=== PATIENT | male | born 1995 | race Caucasian/White ===

== ENCOUNTER 2019-12-22 00:32 | Emergency (ER) | payer OTHER ==
--- OUTSIDE RECORDS SUMMARY | 2019-12-22 00:53 | XMS ---
:1995 [facility] Organization [facility] Support Name Relationship Address Phone [facility] Unavailable [address] [place] [address] BALDA, LEAH MOTHER [address] [place] [address] NA, HARMEET GP NA UNEMPLOYED Unavailable [address] [place] [address] ROCAFUERTE, [place] [address] [place] [address] Care Team Providers Name Role Phone Jose Francisco, Jd Unavailable Unavailable Jose Francisco, Jd Unavailable Unavailable Jose Francisco, Jd Unavailable Unavailable Jose Francisco, Jd Unavailable Unavailable Jose Francisco, Jd Unavailable Unavailable Jose Francisco, Jd Unavailable Unavailable Jose Francisco, Jd Unavailable Unavailable Phan Olivarezlorenza Vo Unavailable [phone] Menla, Lio Unavailable Unavailable Menla, Lio Unavailable Unavailable Menla, Lio Unavailable Unavailable Menla, Lio Unavailable Unavailable Menla, Lio Unavailable Unavailable Menla, Lio Unavailable Unavailable Sneed, Saloman Unavailable [phone] Sneed, Saloman Unavailable [phone] KRISTIE, AMMIR Unavailable Unavailable Kristie, Ammir Unavailable [phone] Kristie, Ammir Unavailable [phone] Kristie, Ammir Unavailable [phone] Kristie, Ammir Unavailable [phone] Kristie, Ammir Unavailable [phone] Kristie, Ammir Unavailable [phone] Kristie, Ammir Unavailable [phone] Kristie, Ammir Unavailable [phone] Kristie, Ammir Unavailable [phone] Kristie, Ammir Unavailable [phone] Kristie, Ammir Unavailable [phone] Kristie, Ammir Unavailable [phone] Kristie, Ammir Unavailable [phone] Kristie, Ammir Unavailable [phone] Kristie, Ammir Unavailable [phone] Kristie, Ammir Unavailable [phone] LIO GARRIDO Unavailable Unavailable MONTGOMERY, JACKI Unavailable Unavailable Montgomery, Jacki Unavailable Unavailable Montgomery, Jacki Unavailable Unavailable Montgomery, Jacki Unavailable Unavailable Montgomery, Jacki Unavailable Unavailable Re-disclosure Warning The records that you are about to access may contain information from federally- assisted alcohol or drug abuse programs. If such information is present, then the following federally mandated warning applies: This information has been disclosed to you from records protected by federal confidentiality rules (42 CFR part 2). The federal rules prohibit you from making any further disclosure of this information unless further disclosure is expressly permitted by the written consent of the person to whom it pertains or as otherwise permitted by 42 CFR part 2. A general authorization for the release of medical or other information is NOT sufficient for this purpose. The Federal rules restrict any use of the information to criminally investigate or prosecute any alcohol or drug abuse patient.The records that you are about to access may contain highly sensitive health information, the redisclosure of which is protected by Article 27-F of the [facility] Public Health law. If you continue you may haveaccess to information: Regarding HIV / AIDS; Provided by facilities licensed or operated by the [facility] Office of Mental Health; or Provided by the [facility] Office for People With Developmental Disabilities. If such information is present, then the following [facility] mandated warning applies: This information has been disclosed to you from confidential records which are protected by state law. State law prohibits you from making any further disclosure of this information without the specific written consent of the person to whom it pertains, or as otherwise permitted by law. Any unauthorized further disclosure in violation of state law may result in a fine or intermediate sentence or both. A general authorization for the release of medical or other information is NOT sufficient authorization for further disclosure. Allergies and Adverse Reactions Type Description Substance Reaction Status Data Source(s ) Propensity to Propensity to Propensity to NEXTG EN ([facility] adverse reactions adverse reactions adverse reactions [facility] (disorder) (disorder) (disorder) Center) Family History Family Member Family Member Family Member Date of Description Data Source(s) Name Gender Status Status Unknown Male Diagnosis 05/09/2014 NEXTGEN ([facility] 12:00:00 AM [facility]) Unknown Male Diagnosis 05/09/2014 NEXTGEN ([facility] 12:00:00 AM [facility]) Encounters Encounter Providers Location Date Indications Data Source(s ) Attender: Jacki [facility] 10[facility]2019 [facility] [place]) 10/27/2019 04:37:00 PM EDT Outpatient Attender: JACKI Hillman 10/24/2019 [facility] MARYAAdmitter: 04:06:00 PM Medical C enter JACKI EDT MARYAReferrer: JACKI MONTGOMERY OutpatientOFFICE/O Attender: Lio [address] [place] [address] 10/24/2019 NE XTGEN ([facility] Men 04:06:00 PM [facility] EDT - [place]) 10/24/2019 04:06:00 PM EDT Outpatient 10/24/2019 [facility] 04:03:00 PM Medical Cente r EDT Outpatient 10/24/2019 [facility] 12:00:00 AM Medical Cente r EDT Outpatient 10/17/2019 [facility] 06:04:00 PM Medical Cente r EDT Outpatient 10/17/2019 [facility] 12:00:00 AM Medical Cente r EDT Outpatient 08/29/2019 [facility] 03:40:00 PM Medical Cente r EDT Outpatient 08/29/2019 [facility] 12:00:00 AM Medical Cente r EDT Outpatient 08/28/2019 [facility] 10:07:00 AM Medical Cente r EDT Outpatient 08/28/2019 [facility] 12:00:00 AM Medical Cente r EDT Outpatient Attender: LIO Hillman 07/31/2019 [facility] MENLA 03:12:00 PM Medical Cente r ELVIRAEAdmitter: EDT LIO Richardsonferrer: LIO VACA OutpatientOFFICE/O Attender: Lio [facility] 07/31/2019 NE XTGEN ([facility], Menla 03:12:00 PM [facility] EDT - Center) 07/31/2019 03:12:00 PM EDT Outpatient 07/31/2019 [facility] 12:17:00 PM Medical Cente r EDT Outpatient 07/31/2019 [facility] 12:00:00 AM Medical Cente r EDT Attender: Brayan Lopez [facility] 07/29/2019 NEXTGEN ( [facility] 03:54:[address] [facility] EDT - Center) 07/29/2019 03:54:00 PM EDT 07/25/2019 [facility] 11:09:00 AM Medical Cente r EDT Patient admitted. Outpatient Attender: LIO Hillman 07/24/2019 Pawan Dudleyitter: LIO 11:15:00 AM EDT edical Center DEEJAY Jettr: LIO VACA OutpatientOFFICE/O Attender: Lio [facility] 07/24/2019 [facility] ([facility] UTPATIENT VISIT, 11:15:00 AM EDT - J osep EST 07/24/2019 Medical 11:15:00 AM EDT Center) Outpatient 07/24/2019 [facility] 10:53:00 AM EDT Medical C enter Outpatient 07/24/2019 [facility] 12:00:00 AM EDT Medical C enter Outpatient 07/21/2019 [facility] 09:55:00 AM EDT Medical C enter Outpatient 07/21/2019 [facility] 12:00:00 AM EDT Medical C enter Attender: Brayan Vo [address] [place] [address] 03/06/2019 NEXT GEN ([facility] 06:23:00 PM EST [facility] 03/06/2019 Medical 06:23:00 PM EST Center) Attender: [facility] 02/17/2019 GENOVEVA MONTANEZ ([facility] 12:48:00 PM EST [facility] 02/17/2019 Medical 12:48:00 PM EST Center) Outpatient Attender: LIO Hillman 02/13/2019 Pawan Dudleyitter: LIO 04:06:00 PM EST edical Center DEEJAY Be: LIO VACA OutpatientOFFICE/O Attender: Jacki [facility] 02/13/2019 NEXTGEN ([facility], 04:06:00 PM EST - J osephs EST 02/13/2019 Medical 04:06:00 PM EST Center) Outpatient 02/13/2019 [facility] 04:04:00 PM EST Medical C enter Outpatient 02/13/2019 [facility] 12:00:00 AM EST Medical C enter Attender: Jacki Montgomery [address] [place] [address] 10/31/2018 NEX TGEN ([facility] 04:59:00 PM EDT [facility] 10/31/2018 Medical 04:59:00 PM EDT Center) Outpatient 10/25/2018 [facility] 01:38:00 PM EDT Medical C enter Outpatient 10/25/2018 [facility] 12:00:00 AM EDT Medical C enter Outpatient Attender: XAVI Hillman 10/24/2018 [facility] RABADIAdmitter: AMMIR 03:55:00 PM EDT Medical Center RABADIReferrer: XAVI FLOWERS OutpatientOFFICE/O Attender: Lio Chang [address] [place] [address] 10/24/2018 NEXTGEN ([facility] VISIT, 03:55:00 PM EDT - J osep EST 10/24/2018 Medical 03:55:00 PM EDT Center) Outpatient 10/24/2018 [facility] 03:51:00 PM EDT Medical C enter Outpatient 10/24/2018 [facility] 12:00:00 AM EDT Medical C enter Outpatient 07/30/2018 [facility] 02:05:00 PM EDT Medical C enter Outpatient 07/30/2018 [facility] 12:00:00 AM EDT Medical C enter Attender: Jacki Caijia [address] [place] [address] 08/09/2017 NEX TGEN ([facility] 05:08:00 PM EDT [facility] 08/09/2017 Medical 05:08:00 PM EDT Center) Attender: Jacki Montgomery [address] [place] [address] 07/26/2017 NEX TGEN ([facility] 03:35:00 PM EDT [facility] 07/26/2017 Medical 03:35:00 PM EDT Center) Attender: Lio Chang [address] [place] [address] 04/23/2017 NEXT GEN ([facility] 02:28:00 PM EST [facility] 04/23/2017 Medical 02:28:00 PM EST Center) Attender: Brayan Vo [facility] 11/13/2016 [facility]ir 04:30:00 PM EDT [facility] 11/13/2016 Medical 04:30:00 PM EDT Center[facility] 09:06:00 AM EDT - [facility] 08/25/2016 Medical 09:06:00 AM EDT Center) Attender: Joseoman 08/04/2016 NEXTGEN ([facility] 09:10:00 AM EDT - [facility] 08/04/2016 Medical 09:10:00 AM EDT Center) Attender: Lio Chang [address] [place] [address] 04/07/2016 NEXT GEN ([facility] 04:26:00 PM EST - [facility] 04/07/2016 Medical 04:26:00 PM EST Center) Attender: [facility] 07/26/2015 NEXTGE N ([facility] 03:12:00 PM EDT - [facility] 07/26/2015 Medical 03:12:00 PM EDT Center) [facility] N [facility] ([facility] 02:11:00 PM EST - [facility] 05/09/2014 Medical 02:11:00 PM EST Center) Immunizations Vaccine Date Status Description Data Source(s) New in 2011. IIV4 12/19/2018 completed Influenza, Injectable, NEXTGEN ([facility] 12:00:00 AM EDT Quadrivalent [facility]) Source: Other Provider Medications Medication Brand Start Product Dose Route Administrative Pharmacy [facility] Indications Reaction Description Data Name Date Form Instructions Instructions Source(s) Fluoxetine fluoxe .00 ORAL active take 1 N EXTGEN 20 MG Oral sarah 2020 {caps capsule by (S aint Capsule 20 mg 12:00: ule} oral route Ravinder ephs fluoxetine capsul 00 AM every day i n Medical 20 mg e EDT the morning Center) capsule Aspirin 81 Aspir- ORAL active take 1 N EXTGEN MG Delayed 81 mg 2020 {tbl} tablet by (S aint Release tablet 12:00: oral route Usha sephs Oral Tablet ,delay 00 AM every day Medical Aspir-81 mg ed EDT Center) tablet,chana releas yed release e benzonatate benzon ORAL active take 1 NEXTGEN 200 MG Oral atate 2019 {caps capsule by (Saint Capsule 200 mg 12:00: ule} oral route 3 Sergei benzonatate capsul 00 AM times ever y Medical 200 mg e EDT day as Center) capsule needed for cough Ibuprofen ibupro ORAL complet take 1 N EXTGEN 600 MG Oral fen 2018 {tbl} ed tablet by (S aint Tablet 600 mg 12:00: oral route 3 J osephs ibuprofen tablet 00 AM times every Medical 600 mg EDT day with Center) tablet food Ibuprofen ibupro ORAL complet take 1 N EXTGEN 400 MG Oral fen 2018 {tbl} ed tablet by (S aint Tablet 400 mg 12:00: oral route Ravinder ephs ibuprofen tablet 00 AM every 4 - 6 Medical 400 mg EDT hours as Center) tablet needed cetirizine Zyrtec ORAL active take 1 N EXTGEN hydrochlori 10 mg 2017 {tbl} tablet by ( [facility] de 10 MG tablet 12:00: oral route J osephs Oral Tablet 00 AM every day Me dical Zyrtec 10 EDT Center) mg tablet benzonatate benzon ORAL complet take 1 NEXTGEN 150 MG Oral atate 2018 {caps ed capsule by ([facility] Capsule 150 mg 12:00: ule} oral route 3 Sergei benzonatate capsul 00 AM times ever y Medical 150 mg e EDT day as Center) capsule needed for cough Hydrocortis hydroc 11/13/ active apply b y NEXTGEN one 25 ortiso 2017 topical (Saint MG/ML ne 2.5 12:00: route every Usha sephs Topical % 00 AM day to the Medic al Cream topica EDT affected Center) hydrocortis l area(s) one 2.5 % cream topical cream Sumatriptan sumatr ORAL active take 1 NEXTGEN 50 MG Oral iptan 2017 {tbl} tablet by (S aint Tablet 50 mg 12:00: oral route Efrain phs sumatriptan tablet 00 AM after onse t Medical 50 mg EDT of migraine; Center ) tablet may repeat after 2 hours if headache returns,not to exceed 200mg in 24hrs Prednisone predni 11/13/ complet take 2 NEXTGEN 20 MG Oral sone 2017 ed tablets x ([place]on nt Tablet 20 mg 12:00: 3day then Dale hs prednisone tablet 00 AM take 1 Medi camron 20 mg EDT tablet x 2 Center) tablet days Insurance Providers Payer name Policy type Policy ID Covered Covered libertarian's Policy P gayle / Coverage libertarian ID relationship to Villar Inf ormation type villar CELESTE [id number] SP [id number] 100 HEALTH NON CAP CELESTE [place] [id number] 01 [id number] 100 CARE [place] CELESTE [place] [id number] 01 [id number] 100 CARE [place] W [id number] Problems, Conditions, and Diagnoses Code Display Name Description Problem Type Effective Data Dates Source(s) [id number] Migraine Migraine Problem 04/07/2016 NEXTGEN 12:00:00 AM ([facility]) Z71.89 Other specified OTHER SPECIFIED Diagnosis 10/24/2019 Pawan t counseling COUNSELING 04:06:00 PM [facility] Z68.22 Body mass index BODY MASS INDEX Diagnosis 10/24/2019 Pawan t (BMI) 22.0-22.9, (BMI) 22.0-22.9, 04:06:00 PM [facility] adult ADULT [facility] Z01.84 Encounter for ENCOUNTER FOR Diagnosis 10/24/2019 antibody response ANTIBODY RESPONSE 04:06:00 PM [facility] examination EXAMINATION [facility] R41.840 Attention and ATTENTION AND Diagnosis 10/24/2019 concentration CONCENTRATION 04:06:00 PM [facility] deficit DEFICIT [facility] Z11.1 Encounter for ENCOUNTER FOR Diagnosis 10/24/2019 screening for SCREENING FOR 04:06:00 PM [facility] respiratory RESPIRATORY [facility] tuberculosis TUBERCULOSIS Center Z71.3 Dietary counseling DIETARY COUNSELING Diagnosis 0 and surveillance AND SURVEILLANCE 03:12:00 PM [facility] Z68.21 Body mass index BODY MASS INDEX Diagnosis 07/31/2019 Pawan t (BMI) 21.0-21.9, (BMI) 21.0-21.9, 03:12:00 PM [facility] adult [facility]ULT [facility] R07.9 Chest pain, CHEST PAIN, Diagnosis 07/31/2019 unspecified UNSPECIFIED 03:12:00 PM [facility] Z11.4 Encounter for ENCOUNTER FOR Diagnosis 02/13/2019 screening for human SCREENING FOR HUMAN 04:06:0 0 PM [facility] immunodeficiency IMMUNODEFICIENCY [facility] dical virus [HIV] VIRUS Center Z71.82 Exercise counseling EXERCISE COUNSELING Diagnosis 019 [facility] 04:06:00 PM [facility] Z68.20 Body mass index BODY MASS INDEX Diagnosis 02/13/2019 Pawan t (BMI) 20.0-20.9, (BMI) 20.0-20.9, 04:06:00 PM Kasia osephs adult ADULT [facility] J06.9 Acute upper ACUTE UPPER Diagnosis 10/24/2018 [facility] respiratory RESPIRATORY 03:55:00 PM [facility] infection, INFECTION, EDT Medical unspecified UNSPECIFIED Center Z00.00 Encounter for ENCNTR FOR GENERAL Diagnosis 10/24/2018 [facility] adult ADULT MEDICAL EXAM 03:55:00 PM Usha [facility] medical examination W/O ABNORMAL EDT Med ical without abnormal FINDINGS Center findings Surgeries/Procedures Procedure Description Date Indications Data Source(s) OFFICE/OUTPATIENT 10/24/2019 [facility] (S hattie [facility] VISIT, EST 12:00:00 AM EDT - Medical Ce nter) 10/24/2019 12:00:00 AM EDT OFFICE/[facility]PATIENT [facility] VISIT, EST 12:00:00 AM EDT - Medical Ce nter) 07/31/2019 12:00:00 AM EDT OFFICE/OUTPATIENT [facility] VISIT, EST 12:00:00 AM EDT - Medical Ce nter) 07/24/2019 12:00:00 AM EDT OFFICE/OUTPATIENT 02[facility]/2019 [facility] VISIT, EST 12:00:00 AM EST - Medical Ce nter) 02/13/2019 12:00:00 AM EST OFFICE/OUTPATIENT 10[facility]/2018 [facility] VISIT, EST 12:00:00 AM EDT - Medical Ce nter) 10/24/2018 12:00:00 AM EDT Results ID Date Data Source Liver 07/24/2019 12:03:00 PM EDT [facility] Profile.[id number] Name Value Range Interpretation Description Data Sup porting Code Source(s) Document(s ) Alkaline 38-126 <content [facility] phosphatase styleCode="Bold"> Sergei [Enzymatic Alkaline Medical activity/volume] Phosphatase (ALP) Cente r in Serum or Plasma </content>90 IU/L<content styleCode="Italic s"> (38-126 IU/L)</content> Alanine 7-50 <content [facility] aminotransferase styleCode="Bold"> Dale hs [Enzymatic Alanine Medical activity/volume] Aminotransferase Center in Serum or Plasma (ALT) </content>11 IU/L<content styleCode="Italic s"> (7-50 IU/L)</content> Aspartate 17-59 <content [facility] aminotransferase styleCode="Bold"> Dale hs [Enzymatic Aspartate Medical activity/volume] Aminotransferase Center in Serum or Plasma (AST) </content>22 IU/L<content styleCode="Italic s"> (17-59 IU/L)</content> Bilirubin.total 0.2-1.3 <content [facility] [Mass/volume] in styleCode="Bold"> Dale hs Serum or Plasma Bilirubin Total Medical </content>0.3 Center MG/DL<content styleCode="Italic s"> (0.2-1.3 MG/DL)</content> Albumin 3.5-5.0 <content [facility] [Mass/volume] in styleCode="Bold"> Dale hs Serum or Plasma Albumin Medical </content>4.5 Center G/DL<content styleCode="Italic s"> (3.5-5.0 G/DL)</content> ID Date Data Source [id number] 07/24/2019 12:03:[address] [facility] Name Value Range Interpretation Description Data Sup porting Code Source(s) Document(s ) Thyrotropin 0.465-4. <content Saint [Units/volume] 68 styleCode="Ja Sergei in Serum or d">Thyroid Medical Plasma by Stimulating Center Detection Hormone limit <= 0.05 </content>1.42 mIU/L MIU/L<content styleCode="Ashlee lics"> (0.465-4.68 MIU/L)</conten t> ID Date Data Source HematologySpeci.[id number] 07/24/2019 12:03:00 PM EDT [facility] nt [facility] 0-0400 Name Value Range Interpretation Description Data Sup porting Code Source(s) Document(s ) Erythrocyte < 15 <content [facility] sedimentation styleCode="Bold" Sergei rate by >Erythrocyte Medical [facility] method Rate (ESR) </content>2 MM/hr<content styleCode="Itali cs"> (< 15 MM/hr)</content> ID Date Data Source HematologyRou.[id number] 07/24/2019 12:03:00 PM EDT [facility] 0400 Name Value Range Interpretation Description Data Sup porting Code Source(s) Document(s ) Leukocytes 4.4-11.0 <content Saint [#/volume] in styleCode="Bold Sergei Blood by ">White Blood Medical Automated count Cell Count Center </content>7.46 KCUMM<content styleCode="Ital ics"> (4.4-11.0 KCUMM)</content > Erythrocytes 4.4-5.9 <content Saint [#/volume] in styleCode="Bold Sergei Blood by ">Red Blood Medical Automated count Cell Count Center </content>5.14 MCUMM<content styleCode="Ital ics"> (4.4-5.9 MCUMM)</content > Erythrocyte mean 26.0-34. <content [facility] corpuscular 0 styleCode="Bold Sergei hemoglobin ">Mean Medical [Entitic mass] Corposcular Center by Automated Hemoglobin count </content>30.5 PG<content styleCode="Ital ics"> (26.0-34.0 PG)</content> Hemoglobin 13.5-17. <content [facility] [Mass/volume] in 5 styleCode="Bold Sergei Blood ">Hemoglobin Medical </content>15.7 Center G/DL<content styleCode="Ital ics"> (13.5-17.5 G/DL)</content> Erythrocyte mean 80.0-100 <content [facility] corpuscular .0 styleCode="Bold Sergei volume [Entitic ">Mean Medical volume] by Corpuscular Center Automated count Volume </content>88.5 FL<content styleCode="Ital ics"> (80.0-100.0 FL)</content> Hematocrit 41.0-53. <content Saint [Volume 0 styleCode="Bold Sergei Fraction] of ">Hematocrit Medical Blood by </content>45.5 Center Automated count %<content styleCode="Ital ics"> (41.0-53.0 %)</content> Erythrocyte mean 32.0-37. <content [facility] corpuscular 0 styleCode="Bold Sergei hemoglobin ">Mean Corpus. Medical concentration Hgb Center [Mass/volume] by Concentration Automated count (MCHC) </content>34.5 G/DL<content styleCode="Ital ics"> (32.0-37.0 G/DL)</content> Platelets 130-400 <content Saint [#/volume] in styleCode="Bold Sergei Blood by ">Platelet Medical Automated count Count Center </content>285 KCUMM<content styleCode="Ital ics"> (130-400 KCUMM)</content > Erythrocyte 11.5-14. <content Saint distribution 5 styleCode="Bold Sergei width [Ratio] by ">Red Cell Medical Automated count Distribution Center Width </content>11.9 %<content styleCode="Ital ics"> (11.5-14.5 %)</content> UNK 0.0 <content Saint styleCode="Bold Sergei ">Nucleated Red Medical Blood Cell Center Count </content>0.00 KCUMM<content styleCode="Ital ics"> (0.0 KCUMM)</content > Platelet mean 8.0-11.0 <content Saint volume [Entitic styleCode="Bold Sergei volume] in Blood ">Mean Platelet Medical by Automated Volume Center count </content>9.5 FL<content styleCode="Ital ics"> (8.0-11.0 FL)</content> UNK 0 <content Saint styleCode="Bold Sergei ">Nucleated Red Medical Blood Cell Center </content>0.0 /100<content styleCode="Ital ics"> (0 /100)</content> ID Date Data Source GFR(Creatinine).[id number] 07/24/2019 12:03:00 PM EDT [facility] Center 0-0400 Name Value Range Interpretation Code Description Data Amparo rce(s) Supporting Document(s ) UNK > 60 <content [facility] styleCode="Bold"> Medical Cent er EGFR </content>111 GFR<content styleCode="Italic s"> (> 60 GFR)</content> ID Date Data Source CHMROUTINECCDA.[id number] 07/24/2019 12:03:00 PM EDT [facility] -0400 Name Value Range Interpretation Description Data Sup porting Code Source(s) Document(s ) Protein 6.3-8.2 <content [facility] [Mass/volum styleCode="Bold Medical e] in Serum ">Total Protein Center or Plasma </content>7.2 G/DL<content styleCode="Ital ics"> (6.3-8.2 G/DL)</content> UNK >= 1.0 <content [facility] styleCode="Bold Medical ">AG Ratio Center </content>1.7 <content styleCode="Ital ics"> (>= 1.0 )</content> UNK 2.3-3.5 <content [facility] styleCode="Bold Medical ">Globulin Center </content>2.7 G/DL<content styleCode="Ital ics"> (2.3-3.5 G/DL)</content> ID Date Data Source [facility].[id number] 07/24/2019 12:03:00 PM EDT [facility] Name Value Range Interpretation Description Data Sup porting Code Source(s) Document(s ) Sodium 137-145 <content Saint [Moles/volume] in styleCode="Bold"> [facility] Serum or Plasma Sodium Medical </content>138 Center MEQ/L<content styleCode="Italic s"> (137-145 MEQ/L)</content> Potassium 3.5-5.3 <content [facility] [Moles/volume] in styleCode="Bold"> E[facility] Serum or Plasma Potassium Medical </content>4.2 Center MEQ/L<content styleCode="Italic s"> (3.5-5.3 MEQ/L)</content> Chloride 98-107 <content Saint [Moles/volume] in styleCode="Bold"> Efrain phs Serum or Plasma Chloride Medical </content>99 Center MEQ/L<content styleCode="Italic s"> (98-107 MEQ/L)</content> Carbon dioxide, 22-30 Above high <content Saint total normal styleCode="Bold"> Sergei [Moles/volume] in Carbon Dioxide Medical Serum or Plasma </content>32 Center MEQ/L H<content styleCode="Italic s"> (22-30 MEQ/L)</content> Creatinine 0.5-1.3 <content Saint [Mass/volume] in styleCode="Bold"> Dale hs Serum or Plasma Creatinine Medical </content>0.9 Center MG/DL<content styleCode="Italic s"> (0.5-1.3 MG/DL)</content> UNK 9-20 <content Saint styleCode="Bold"> Sergei BUN </content>9 Medical MG/DL<content Center styleCode="Italic s"> (9-20 MG/DL)</content> Glucose 74-106 <content Saint [Mass/volume] in styleCode="Bold"> Dale hs Serum or Plasma Glucose Medical </content>93 Center MG/DL<content styleCode="Italic s"> (74-106 MG/DL)</content> Calcium 8.4-10. <content [facility] [Mass/volume] in 2 styleCode="Bold"> Dale hs Serum or Plasma Calcium Medical </content>9.7 Center MG/DL<content styleCode="Italic s"> (8.4-10.2 MG/DL)</content> UNK > 60 <content Saint styleCode="Bold"> Sergei EGFR Medical </content>111 Center GFR<content styleCode="Italic s"> (> 60 GFR)</content> Alkaline 38-126 <content Saint phosphatase styleCode="Bold"> Sergei [Enzymatic Alkaline Medical activity/volume] Phosphatase (ALP) Cente r in Serum or Plasma </content>90 IU/L<content styleCode="Italic s"> (38-126 IU/L)</content> Alanine 7-50 <content Saint aminotransferase styleCode="Bold"> Dale hs [Enzymatic Alanine Medical activity/volume] Aminotransferase Center in Serum or Plasma (ALT) </content>11 IU/L<content styleCode="Italic s"> (7-50 IU/L)</content> Aspartate 17-59 <content Saint aminotransferase styleCode="Bold"> Dale hs [Enzymatic Aspartate Medical activity/volume] Aminotransferase Center in Serum or Plasma (AST) </content>22 IU/L<content styleCode="Italic s"> (17-59 IU/L)</content> Bilirubin.total 0.2-1.3 <content Saint [Mass/volume] in styleCode="Bold"> Dale hs Serum or Plasma Bilirubin Total Medical </content>0.3 Center MG/DL<content styleCode="Italic s"> (0.2-1.3 MG/DL)</content> Albumin 3.5-5.0 <content Saint [Mass/volume] in styleCode="Bold"> Dale hs Serum or Plasma Albumin Medical </content>4.5 Center G/DL<content styleCode="Italic s"> (3.5-5.0 G/DL)</content> ID Date Data Source [id number] 07/22/2019 12:00:00 AM EDT [facility] Name Value Range Interpretation Code Description Data Amparo rce(s) Supporting Document(s ) 2019-nCoV [facility] RNA XXX EMILY+probe- Imp This lab was ordered by [facility] and reported by [employer]. ID Date Data Source Microbiology.[id number] 10/24/2018 05:15:00 PM EDT [facility] 400 Name Value Range Interpretation Description Data Sup porting Code Source(s) Document(s ) UNK <item><content Saint styleCode="[facility] d">Culture Medical Report Center </content><br/ ><table><tbody ><tr><td>Speci men Number:</td><t d>[id number]</t d></tr><tr><td >Sample Collection Date/Time: </td><td>2018 5:15 PM</td></tr><t r><td>Specimen Source:</td><t d>THROAT</td>< /tr><tr><td>Th roat-Nose Culture:</td>< td>Collection Plate Date: 10/24/2018 19:14 </td></tr><tr> <td>Culture Status:</td><t d>Final </td></tr><tr> <td>Culture Report:</td><t d>NEGATIVE FOR BETA HEMOLYTIC STREPTOCOCCI </td></tr></tb lv></table></ item> Streptococcus NEGATIVE <item><content Saint pyogenes Ag styleCode="Ja Mai [Presence] in d">Rapid Strep Medical Unspecified A Center specimen by </content><br/ Immunoassay ><table><tbody ><tr><td>Speci men Number:</td><t d>[id number]</t d></tr><tr><td >Sample Collection Date/Time: </td><td>2018 5:15 PM</td></tr><t r><td>Specimen Source:</td><t d>THROAT</td>< /tr><tr><td>Ra pid Strep A:</td><td>NEG ATIVE </td></tr></tb lv></table></ item> UNK <item><content Saint styleCode="Ja Mai d">Culture Medical Status Center </content><br/ ><table><tbody ><tr><td>Speci men Number:</td><t d>[id number]</t d></tr><tr><td >Sample Collection Date/Time: </td><td>2018 5:15 PM</td></tr><t r><td>Specimen Source:</td><t d>THROAT</td>< /tr><tr><td>Cu lture Report:</td><t d>NEGATIVE FOR BETA HEMOLYTIC STREPTOCOCCI </td></tr><tr> <td>Throat-Nos e Culture:</td>< td>Collection Plate Date: 10/24/2018 19:14 </td></tr><tr> <td>Culture Status:</td><t d>Final </td></tr></tb lv></table></ item> ID Date Data Source Liver 10/24/2018 05:15:00 PM EDT [facility] Profile.[id number] Name Value Range Interpretation Description Data Sup porting Code Source(s) Document(s ) Alanine 7-50 <content Saint aminotransferase styleCode="Bold"> Dale hs [Enzymatic Alanine Medical activity/volume] Aminotransferase Center in Serum or Plasma (ALT) </content>14 IU/L<content styleCode="Italic s"> (7-50 IU/L)</content> Aspartate 17-59 <content [facility] aminotransferase styleCode="Bold"> Dale hs [Enzymatic Aspartate Medical activity/volume] Aminotransferase Center in Serum or Plasma (AST) </content>18 IU/L<content styleCode="Italic s"> (17-59 IU/L)</content> Alkaline 38-126 <content Saint phosphatase styleCode="Bold"> Sergei [Enzymatic Alkaline Medical activity/volume] Phosphatase (ALP) Cente r in Serum or Plasma </content>99 IU/L<content styleCode="Italic s"> (38-126 IU/L)</content> Albumin 3.5-5.0 <content Saint [Mass/volume] in styleCode="Bold"> Dale hs Serum or Plasma Albumin Medical </content>4.1 Center G/DL<content styleCode="Italic s"> (3.5-5.0 G/DL)</content> Bilirubin.total 0.2-1.3 <content Saint [Mass/volume] in styleCode="Bold"> Dale hs Serum or Plasma Bilirubin Total Medical </content>0.5 Center MG/DL<content styleCode="Italic s"> (0.2-1.3 MG/DL)</content> ID Date Data Source LIPID.[id number] 10/24/2018 05:15:00 PM EDT [facility] Name Value Range Interpretation Description Data Sup porting Code Source(s) Document(s ) Cholesterol -<200 <content Saint [Mass/volume] in styleCode="Ja Sergei Serum or Plasma d">Cholesterol Medical </content>155 Center MG/DL<content styleCode="Ashlee lics"> (-<200 MG/DL)</conten t> UNK > 60 Below low normal <content Saint styleCode="Ja Sergei d">HDL- Medical Cholesterol Center </content>54 MG/DL L<content styleCode="Ashlee lics"> (> 60 MG/DL)</conten t> Triglyceride < 150 <content Saint [Mass/volume] in styleCode="Ja Sergei Serum or Plasma d">Triglycerid [facility] es Center </content>60 MG/DL<content styleCode="Ashlee lics"> (< 150 MG/DL)</conten t> UNK < 100 <content Saint styleCode="Ja Sergei d">LDL-Cholest [facility] </content>89 MG/DL<content styleCode="Ashlee lics"> (< 100 MG/DL)</conten t> ID Date Data Source HematologySpeci.[id number] 10/24/2018 05:15:00 PM EDT [facility] 0-0400 Name Value Range Interpretation Description Data Sup porting Code Source(s) Document(s ) Erythrocyte < 15 <content Saint sedimentation styleCode="Bold" Sergei rate by >Erythrocyte [facility] method Rate (ESR) </content>1 MM/hr<content styleCode="Itali cs"> (< 15 MM/hr)</content> ID Date Data Source HematologyRou.[id number] 10/24/2018 05:15:00 PM EDT [facility] 0400 Name Value Range Interpretation Description Data Sup porting Code Source(s) Document(s ) Leukocytes 4.4-11.0 <content Saint [#/volume] in styleCode="Bold Sergei Blood by ">White Blood Medical Automated count Cell Count Center </content>8.19 KCUMM<content styleCode="Ital ics"> (4.4-11.0 KCUMM)</content > Erythrocytes 4.4-5.9 <content Saint [#/volume] in styleCode="Bold Sergei Blood by ">Red Blood Medical Automated count Cell Count Center </content>5.33 MCUMM<content styleCode="Ital ics"> (4.4-5.9 MCUMM)</content > Hematocrit 41.0-53. <content Saint [Volume 0 styleCode="Bold Sergei Fraction] of ">Hematocrit Medical Blood by </content>47.8 Center Automated count %<content styleCode="Ital ics"> (41.0-53.0 %)</content> Hemoglobin 13.5-17. <content Saint [Mass/volume] in 5 styleCode="Bold Sergei Blood ">Hemoglobin Medical </content>16.0 Center G/DL<content styleCode="Ital ics"> (13.5-17.5 G/DL)</content> Erythrocyte mean 80.0-100 <content Saint corpuscular .0 styleCode="Bold Sergei volume [Entitic ">Mean Medical volume] by Corpuscular Center Automated count Volume </content>89.7 FL<content styleCode="Ital ics"> (80.0-100.0 FL)</content> Erythrocyte 11.5-14. <content Saint distribution 5 styleCode="Bold Sergei width [Ratio] by ">Red Cell Medical Automated count Distribution Center Width </content>12.4 %<content styleCode="Ital ics"> (11.5-14.5 %)</content> Erythrocyte mean 32.0-37. <content Saint corpuscular 0 styleCode="Bold Sergei hemoglobin ">Mean Corpus. Medical concentration Hgb Center [Mass/volume] by Concentration Automated count (MCHC) </content>33.5 G/DL<content styleCode="Ital ics"> (32.0-37.0 G/DL)</content> Erythrocyte mean 26.0-34. <content Saint corpuscular 0 styleCode="Bold Sergei hemoglobin ">Mean Medical [Entitic mass] Corposcular Center by Automated Hemoglobin count </content>30.0 PG<content styleCode="Ital ics"> (26.0-34.0 PG)</content> Platelets 130-400 <content Saint [#/volume] in styleCode="Bold Sergei Blood by ">Platelet Medical Automated count Count Center </content>316 KCUMM<content styleCode="Ital ics"> (130-400 KCUMM)</content > UNK 0.0 <content Saint styleCode="Bold Sergei ">Nucleated Red Medical Blood Cell Center Count </content>0.00 KCUMM<content styleCode="Ital ics"> (0.0 KCUMM)</content > Platelet mean 8.0-11.0 <content Saint volume [Entitic styleCode="Bold Sergei volume] in Blood ">Mean Platelet Medical by Automated Volume Center count </content>9.2 FL<content styleCode="Ital ics"> (8.0-11.0 FL)</content> UNK 0 <content Saint styleCode="Bold Sergei ">Nucleated Red Medical Blood Cell Center </content>0.0 /100<content styleCode="Ital ics"> (0 /100)</content> ID Date Data Source GFR(Creatinine).[id number] 10/24/2018 05:15:00 PM EDT [facility] 0-0400 Name Value Range Interpretation Code Description Data Amparo rce(s) Supporting Document(s ) UNK > 60 <content [facility] styleCode="Bold"> Medical Cent er EGFR </content>112 GFR<content styleCode="Italic s"> (> 60 GFR)</content> ID Date Data Source CHMROUTINECCDA.[id number] 10/24/2018 05:15:00 PM EDT [facility] -0400 Name Value Range Interpretation Description Data Sup porting Code Source(s) Document(s ) UNK >= 1.0 <content [facility] styleCode="Bold Medical ">AG Ratio Center </content>1.4 <content styleCode="Ital ics"> (>= 1.0 )</content> UNK 4.2-5.8 <content Saint Sergei styleCode="Bold Medical ">Hemoglobin Center A1C </content>5.2 %<content styleCode="Ital ics"> (4.2-5.8 %)</content> UNK 2.3-3.5 <content Saint Sergei styleCode="Bold Medical ">Globulin Center </content>3.0 G/DL<content styleCode="Ital ics"> (2.3-3.5 G/DL)</content> Protein 6.3-8.2 <content Saint Sergei [Mass/volum styleCode="Bold Medical e] in Serum ">Total Protein Center or Plasma </content>7.1 G/DL<content styleCode="Ital ics"> (6.3-8.2 G/DL)</content> ID Date Data Source [facility].[id number] 10/24/2018 05:15:00 PM EDT [facility] Name Value Range Interpretation Description Data Sup porting Code Source(s) Document(s ) Potassium 3.5-5.3 <content Saint [Moles/volume] in styleCode="Bold"> Efrain [facility] Serum or Plasma Potassium Medical </content>4.3 Center MEQ/L<content styleCode="Italic s"> (3.5-5.3 MEQ/L)</content> Carbon dioxide, 22-30 Above high <content Saint total normal styleCode="Bold"> Sergei [Moles/volume] in Carbon Dioxide Medical Serum or Plasma </content>31 Center MEQ/L H<content styleCode="Italic s"> (22-30 MEQ/L)</content> Chloride 98-107 <content Saint [Moles/volume] in styleCode="Bold"> Efrain [facility] Serum or Plasma Chloride Medical </content>101 Center MEQ/L<content styleCode="Italic s"> (98-107 MEQ/L)</content> Sodium 137-145 <content Saint [Moles/volume] in styleCode="Bold"> Efrain [facility] Serum or Plasma Sodium Medical </content>141 Center MEQ/L<content styleCode="Italic s"> (137-145 MEQ/L)</content> Calcium 8.4-10. <content Saint [Mass/volume] in 2 styleCode="Bold"> Dale hs Serum or Plasma Calcium Medical </content>10.1 Center MG/DL<content styleCode="Italic s"> (8.4-10.2 MG/DL)</content> Glucose 74-106 <content Saint [Mass/volume] in styleCode="Bold"> Dale hs Serum or Plasma Glucose Medical </content>85 Center MG/DL<content styleCode="Italic s"> (74-106 MG/DL)</content> Creatinine 0.5-1.3 <content Saint [Mass/volume] in styleCode="Bold"> Dale hs Serum or Plasma Creatinine Medical </content>0.9 Center MG/DL<content styleCode="Italic s"> (0.5-1.3 MG/DL)</content> UNK 9-20 <content Saint styleCode="Bold"> Sergei BUN </content>10 Medical MG/DL<content Center styleCode="Italic s"> (9-20 MG/DL)</content> UNK > 60 <content Saint styleCode="Bold"> Sergei EGFR Medical </content>112 Center GFR<content styleCode="Italic s"> (> 60 GFR)</content> Aspartate 17-59 <content Saint aminotransferase styleCode="Bold"> Dale hs [Enzymatic Aspartate Medical activity/volume] Aminotransferase Center in Serum or Plasma (AST) </content>18 IU/L<content styleCode="Italic s"> (17-59 IU/L)</content> Alanine 7-50 <content Saint aminotransferase styleCode="Bold"> Dale hs [Enzymatic Alanine Medical activity/volume] Aminotransferase Center in Serum or Plasma (ALT) </content>14 IU/L<content styleCode="Italic s"> (7-50 IU/L)</content> Alkaline 38-126 <content Saint phosphatase styleCode="Bold"> Sergei [Enzymatic Alkaline Medical activity/volume] Phosphatase (ALP) Cente r in Serum or Plasma </content>99 IU/L<content styleCode="Italic s"> (38-126 IU/L)</content> Bilirubin.total 0.2-1.3 <content Saint [Mass/volume] in styleCode="Bold"> Dale hs Serum or Plasma Bilirubin Total Medical </content>0.5 Center MG/DL<content styleCode="Italic s"> (0.2-1.3 MG/DL)</content> Albumin 3.5-5.0 <content Saint [Mass/volume] in styleCode="Bold"> Dale hs Serum or Plasma Albumin Medical </content>4.1 Center G/DL<content styleCode="Italic s"> (3.5-5.0 G/DL)</content> Procedure Social History Code Duration Value Status Description Data Source(s ) Caffeine Use 10/24/2019 completed NEXTGEN ([place] Details 12:00:00 AM EDT [facility]) 10/24/2019 Never smoked completed Never smoked NEXTGEN (S aint 12:00:00 AM EDT tobacco tobacco [facility]) Alcohol Use 10/24/2019 beer 1 beer completed beer 1 beer NEXTGEN (Sa int Details 12:00:00 AM EDT rarely rarely [facility]) Smoking 10/24/2019 Unknown if completed Unknown if ever NEXTGEN ( Saint 12:00:00 AM EDT ever smoked smoked [facility]) Smoking Unknown if completed Unknown if ever [facility] ever smoked smoked Medical Cente r Vital Signs ID Date Data Source UNK Name Value Range Interpretation Code Description Data Source(s) Oxygen saturation 98 % 98 % NEXTGEN ([facility] in Arterial blood [facility] by Pulse oximetry Center) Body mass index 22.56 kg/m2 22.56 kg/m2 NEXTGEN ([facility] (BMI) [Ratio] [facility]) Respiratory rate 20 /min 20 /min [facility] ([facility]) Body temperature 36.78 Kayley 36.78 Kayley [facility] ([facility]) Heart rate 93 /min 93 /min [facility] Diastolic blood 71 mm[Hg] 71 mm[Hg] [facility]) Systolic blood 103 mm[Hg] 103 mm[Hg] [facility] ([facility]) Body weight 70.307 kg 70.307 kg [facility] ([facility]) Body height 176.53 cm 176.53 cm [facility] Systolic blood 116 mm[Hg] 116 mm[Hg] [facility]EXT[facility] ([facility]) Body weight 67.132 kg 67.132 kg [facility] ([facility]) Body height 176.53 cm 176.53 cm [facility] Oxygen saturation 94 % 94 % NEXTGEN ([facility] in Arterial [facility] by Pulse oximetry Center) Body mass index 21.54 kg/m2 21.54 kg/m2 NEXTGEN ([facility] (BMI) [Ratio] [facility]) Respiratory rate 20 /min 20 /min [facility] Body temperature 36.56 Kayley 36.56 Kayley [facility] ([facility]) Heart rate 100 /min 100 /min [facility]) Diastolic blood 78 mm[Hg] 78 mm[Hg] [facility] ( [facility]) Oxygen saturation 99 % 99 % NEXTGEN ([facility] in Arterial [facility] by Pulse oximetry Center) Body mass index 21.11 kg/m2 21.11 kg/m2 NEXTGEN ([facility] (BMI) [Ratio] [facility]) Respiratory rate 18 /min 18 /min [facility] ([facility]) Body temperature 36.56 Kayley 36.56 Kayley [facility]) Heart rate 101 /min 101 /min [facility]) Diastolic blood 87 mm[Hg] 87 mm[Hg] [facility] Systolic blood 122 mm[Hg] 122 mm[Hg] [facility]EXT[facility] ([facility]) Body weight 65.771 kg 65.771 kg [facility] ([facility]) Body height 176.53 cm 176.53 cm [facility] ([facility]) Oxygen saturation 95 % 95 % NEXTGEN ([facility] in Arterial blood [facility] by Pulse oximetry Center) Body mass index 20.96 kg/m2 20.96 kg/m2 NEXT[facility] ([facility] (BMI) [Ratio] [facility]) Respiratory rate 18 /min 18 /min [facility] ([facility]) Body temperature 36.61 Kayley 36.61 Kayley [facility] ([facility]) Heart rate 90 /min 90 /min [facility] ([facility]) Diastolic blood 71 mm[Hg] 71 mm[Hg] [facility]EXT[facility] ( [facility]) Systolic blood 112 mm[Hg] 112 mm[Hg] NEXTGEN ([facility] pressure [facility]) Body weight 65.317 kg 65.317 kg [facility]) Body height 176.53 cm 176.53 cm [facility] ([facility]) Oxygen saturation 100 % 100 % NEXTGEN ([facility] in Arterial blood [facility] by Pulse oximetry Center) Heart rate 93 /min 93 /min [facility] ([facility]) Diastolic blood 67 mm[Hg] 67 mm[Hg] NEXT[facility] ( [facility]) Systolic blood 108 mm[Hg] 108 mm[Hg] [facility] ([facility] pressure [facility]) Oxygen saturation 98 % 98 % NEXTGEN ([facility] in Arterial blood [facility] by Pulse oximetry Center) Body mass index 20.93 kg/m2 20.93 kg/m2 NEXTGEN ([facility] (BMI) [Ratio] [facility]) Respiratory rate 20 /min 20 /min [facility] ([facility]) Body temperature 36.83 Kayley 36.83 Kayley [facility] ([facility]) Heart rate 103 /min 103 /min [facility] ([facility]) Diastolic blood 65 mm[Hg] 65 mm[Hg] NEXT[facility] ( [facility]) Systolic blood 96 mm[Hg] 96 mm[Hg] NEXTGEN (S aint [facility]) Body weight 65.227 kg 65.227 kg [facility]) Body height 176.53 cm 176.53 cm [facility] ([facility]) Patient Treatment Plan of Care Planned Activity Planned Date Details Description Data Source (s) Fluoxetine 20 MG Oral 07/31/2019 12:00:00 NEXTGEN (Saint Capsule [facility]) Aspirin 81 MG Delayed 07/24/2019 12:00:00 NEXTGEN (Saint Release Oral Tablet [facility]) benzonatate 200 MG Oral 10/24/2018 12:00:00 NEXTGEN ([facility] Capsule [facility]) Ibuprofen 600 MG Oral 10/24/2018 12:00:00 NEXTGEN (Saint Tablet [facility]) cetirizine hydrochloride 08/09/2017 12:00:00 NEXTGEN (Saint 10 MG Oral Tablet [facility]) Ibuprofen 400 MG Oral 08/09/2017 12:00:00 [facility] (Saint Tablet [facility]) benzonatate 150 MG Oral 08/09/2017 12:00:00 NEXTGEN ([facility] Capsule [facility]) Sumatriptan 50 MG Oral 11/13/2016 12:00:00 NEXTGEN (Saint Tablet [facility]) Hydrocortisone 25 MG/ML 11/13/2016 12:00:00 NEXTGEN ([facility] Topical Cream [facility]) Prednisone 20 MG Oral 11/13/2016 12:00:00 [facility] (Saint Tablet [facility])
[2019-12-22 00:56] VITALS: PULSE 96; TEMP 97.3; BMI 22.9
[2019-12-22] MEDS ORDERED: ACETAMINOPHEN 500 MG TABLET (FP) PO ONE (01:10)
--- NOTE | 2019-12-22 01:27 | PDOC ---
History of Present Illness - General Chief Complaint: Pain, Acute Stated Complaint: RIGHT ARM PAIN Time Seen by Provider: 12/22/19 00:44 History Source: Patient Exam Limitations: No Limitations - History of Present Illness Initial Comments: 12/22/19 05:01 24M o/w healthy c/o right forearm pain that started tonight. [place], states no strenuous activities or trauma. No numbness, tingling, weakness. Has an occipital headache, episodic for 2 weeks now. No vision/hearing changes. No f/c. Has not taken anything for pain. No increased stress. Past History - Medical History Allergies/Adverse Reactions: Allergies Allergy/AdvReac Type Severity Reaction Status Date / Time No Known Allergies Allergy Verified 12/22/19 00:55 - Psycho-Social/Smoking History Smoking History: Never smoked Information on smoking cessation initiated: No - Substance Abuse Hx (Audit-C & DAST Scrn) How often the patient has a drink containing alcohol: Monthly or less Number of drinks the patient has on a typical day: 1 or 2 How often the patient has six or more drinks on one occasion: Less than monthly Score: In Men: 4 or > Positive; In Women: 3 or > Positive: 2 Screen Result (Pos requires Nsg. Audit-10AR): Negative In the last yr the pt used illegal drug/Rx for NonMed reason: No Score: Yes response is considered Positive: 0 Screen Result (Positive result requires Nsg. DAST-10): Negative Review of Systems - Review of Systems Comments:: 12/23/19 08:05 CONSTITUTIONAL: Denies F / C HEENT: +headache. Denies lightheadedness, dizziness, changes in vision / hearing, sore throat, rhinorrhea RESP: Denies SOB, cough CARD: Denies chest pain, palpitations GI: Denies N / V / D, abdominal pain, bloody stool, inability to tolerate PO : Denies dysuria, hematuria, frequency NEURO: Denies numbness, tingling, weakness MSK: +RUE pain SKIN: Denies rashes *Physical Exam - Vital Signs Last Vital Signs Temp Pulse Resp BP Pulse Ox 97.3 F L 96 H 18 130/96 100 12/22/19 00:52 12/22/19 00:52 12/22/19 00:52 12/22/19 00:52 12/22/19 00:52 - Physical Exam GEN: Well appearing, NAD, AAOx3. HEENT: NC/AT, EOMI, PERRL, CN II-XII grossly intact. No facial asymmetry. Normal voice. Supple neck w/ FROM; nontender midline. CV: S1/S2, RRR, no m/r/g LUNG: CTAB, no wheezes, crackles, rales, rhonchi. GI: Soft, ndnt, +BS, no guarding, no rebound. MSK: TTP of the right forearm w/o erythema or obvious deformity. FROM w/o pain. SKIN: Warm, dry, no rashes appreciated. PSYCH: Normal mood and affect. NEURO: Moving all extremities well. 5/5 UE and intrinisic hand m. strength b/l. symmetric sensation. ED Treatment Course - RADIOLOGY Radiology Studies Ordered: Category Date Time Status ELBOW-RIGHT [RAD] Stat Radiology 12/22/19 01:25 Ordered FOREARM- RIGHT [RAD] Stat Radiology 12/22/19 01:25 Ordered Medical Decision Making - Medical Decision Making 24M w/ right arm pain since earlier tonight. atraumatic, nonstrenuous activities. neuro intact tylenol xr appearing w/o lesions, fractures pain well controlled s/p tylenol dc home w/ pcp f/u Discharge - Discharge Information Problems reviewed: Yes Clinical Impression/Diagnosis: Arm pain Condition: Fair Disposition: HOME - Admission No - Follow up/Referral Referrals: Di Jack MD [Primary Care Provider] - Yash Castillo MD [Staff Physician] - - Patient Discharge Instructions Additional Instructions: Your x-rays were reassuring. Take tylenol and/or ibuprofen for your symptoms. See Dr. Jack in the next 14 days for follow up. We referred you to a plastic surgeon for evaluation of the cyst on your wrist; please call and schedule an appointment. Return to the Emergency Department if you experience new or worsening symptoms. - Post Discharge Activity
[2019-12-22] MEDS ORDERED: ACETAMINOPHEN 325 MG TABLET (FP) ONE (01:34)
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
[2019-12-22 02:59] VITALS: BP 113/50
== END 2019-12-22 03:01 | disposition home or self-care (01) ==
LOC: JER 00:32
DX: M79.601 Pain in right arm (principal)
CPT/HCPCS: 73070-TC-RT-FY; 73090-TC-RT-FY; 99284-25